=== PATIENT | female | born 1950 | race Hispanic/Latino ===

== ENCOUNTER 2018-01-15 12:15 | Outpatient (CLI) | payer MEDICARE, MEDICAID | END 2018-01-15 12:16 | disposition home or self-care (01) | LOC: BICMAMMO 12:15 | PROVIDERS: ATTEND Family Medicine | DX: Z12.31 Encounter for screening mammogram for malignant neoplasm of breast (principal); Z80.3 Family history of malignant neoplasm of breast | CPT/HCPCS: 77063; 77067 ==

== ENCOUNTER 2018-12-05 19:22 | Emergency (ER) | payer MEDICARE, MEDICAID | END 2018-12-05 21:50 | disposition home or self-care (01) | LOC: ERS 19:22 | DX: T81.31XA Disruption of external operation (surgical) wound, not elsewhere classified, initial encounter (principal); E78.5 Hyperlipidemia, unspecified; I10 Essential (primary) hypertension; J45.909 Unspecified asthma, uncomplicated; Z79.899 Other long term (current) drug therapy; Z79.51 Long term (current) use of inhaled steroids | CPT/HCPCS: 99283 ==

== ENCOUNTER 2018-12-22 09:34 | Outpatient (CLI) | payer MEDICARE, MEDICAID ==
--- NOTE | 2018-12-22 11:23 | HP ---
HISTORY OF PRESENT ILLNESS: Ms. Tennille Haynes is a very pleasant 68-year-old, who presents [facility] for evaluation of a nonhealing surgical wound of the left back. The patient is Korean-speaking only according to records accompanying the patient. A lesion of the left back was excised 3 days after the sutures were discontinued, an open wound was noted. The patient was seen by Dr. Carpenter and at this time, referred to the [facility]ound Center for further evaluation and treatment. PAST MEDICAL HISTORY: 1. Hypertension. 2. Gastroesophageal reflux disease. 3. Asthma. PAST SURGICAL HISTORY: 1. . 2. ORIF right femur. 3. Laparoscopic cholecystectomy. MEDICATIONS: 1. Amlodipine. 2. Atorvastatin. 3. Calcium. 4. Multivitamin. 5. Ranitidine. 6. Albuterol. ALLERGIES: NO KNOWN DIAGNOSED ALLERGIES. SOCIAL HISTORY: Significant for only the rare consumption of alcohol. FAMILY HISTORY: Significant for diabetes mellitus. The patient states that her brother and grandmother were both diagnosed with diabetes mellitus. PHYSICAL EXAMINATION: VITAL SIGNS: Temperature 97.8, pulse 89, respirations 17, blood pressure 127/68. GENERAL: A 68-year-old female, sitting on chair in examination room, in no acute distress. HEENT: Normocephalic, atraumatic. NECK: No nuchal rigidity. CHEST: Clear to auscultation. CV: Regular rate and rhythm. ABDOMEN: Soft. EXTREMITIES: No clubbing or cyanosis. NEURO: Grossly nonfocal. BACK: A wound of the left back is present, which measures approximately 1.0 x 0.9 cm. Granulation tissue is present within the wound margins. Necrotic and nonviable tissue present within the wound margins was debrided with an excisional full-thickness debridement with the use of a curette. No purulent drainage is associated with the wound. No erythema of the skin surrounding the wound is appreciated. No maceration of the skin of the periwound is noted. ASSESSMENT AND PLAN: 1. Nonhealing surgical wound of left back as described above. Dressing changes of Medihoney followed by bordered gauze will be initiated today. These dressing changes are to be performed on a daily basis after cleansing and irrigation. The patient states she will be performing her own dressing changes. No antibiotics will be prescribed today based upon the appearance of the wound. I will see Ms. Haynes again in 1 week. 2. Hypertension. 3. Gastroesophageal reflux disease. 4. Asthma. Job ID: [id number]
[2018-12-22] MEDS ORDERED: Sodium Chloride 0.9% 15 ML NEB ONE (18:00)
== END 2018-12-22 09:35 | disposition home or self-care (01) ==
LOC: WCC 09:34
PROVIDERS: ATTEND Family Medicine
DX: T81.89XD Other complications of procedures, not elsewhere classified, subsequent encounter (principal); I10 Essential (primary) hypertension; K21.9 Gastro-esophageal reflux disease without esophagitis; J45.909 Unspecified asthma, uncomplicated
CPT/HCPCS: A4218

== ENCOUNTER 2018-12-29 10:49 | Outpatient (CLI) | payer MEDICARE, MEDICAID ==
--- NOTE | 2018-12-29 12:38 | PRG ---
DATE OF SERVICE: 12/29/2018 HISTORY: Ms. Tennille Haynes is a very pleasant 68-year-old, who presents to the [facility] for evaluation of a nonhealing surgical wound of the left back. The patient has been a speaking only, according to records accompanying the patient at the time of her initial presentation to the [facility]ound Center, a lesion of the left back was excised. Three days after the sutures were discontinued, an open wound was noted. The patient was seen by Dr. Carpenter, and at this time, referred to the [facility] Center for further evaluation and treatment. After being seen in the [facility]ound Center, dressing changes of Medihoney and bordered gauze were initiated. These dressing changes have been performed on a daily basis after cleansing and irrigation with the assistance of the patient's daughter. PHYSICAL EXAMINATION: VITAL SIGNS: Temperature 98.4, pulse 76, respirations 19, and blood pressure 127/73. BACK: A wound of the left back is present, which has improved in its appearance since the patient's last visit. The dimensions of the wound were all approximately 0.3 x 0.2 cm. Granulation tissue is present within the wound margins. Nonviable tissue present within the wound margins was debrided with an excisional full-thickness debridement. No purulent drainage is associated with the wound. No erythema of the skin surrounding the wound is present. No maceration of the skin of the periwound is noted. ASSESSMENT AND PLAN: 1. Nonhealing surgical wound of left back as described above. Dressing changes of Medihoney followed by bordered gauze will be continued on a daily basis after cleansing and irrigation with the assistance of the patient's daughter. The patient has been reassured that the wound has almost healed completely. Ms. Haynes will be discharged from clinic today with followup on a p.r.n. basis. The patient has been instructed to have her daughter continue dressing changes until the wound has completely healed. The patient understands and is in agreement with the preceding treatment plan. 2. Hypertension. 3. Gastroesophageal reflux disease. 4. Asthma. Job ID: [id number]
[2018-12-29] MEDS ORDERED: Sodium Chloride 0.9% 15 ML NEB ONE (19:43)
== END 2018-12-29 10:50 | disposition home or self-care (01) ==
LOC: WCC 10:49
PROVIDERS: ATTEND Family Medicine
DX: T81.89XD Other complications of procedures, not elsewhere classified, subsequent encounter (principal); K21.9 Gastro-esophageal reflux disease without esophagitis; J45.909 Unspecified asthma, uncomplicated; I10 Essential (primary) hypertension
CPT/HCPCS: A4218